=== PATIENT | male | born 1975 | race Caucasian/White ===

== ENCOUNTER 2016-12-12 20:46 | Emergency (ER) | payer SELFPAY ==
[2016-12-12 21:03] VITALS: BP 133/71
--- NOTE | 2016-12-12 21:05 | EDM.PDOCBH ---
ED HPI GENERAL MEDICAL PROBLEM - General Chief Complaint: Drug or Alcohol Abuse Stated Complaint: DETOX Time Seen by Provider: 12/12/16 21:04 Source of Information: Reports: Patient History Limitations: Reports: No Limitations - History of Present Illness INITIAL COMMENTS - FREE TEXT/NARRATIVE: HISTORY AND PHYSICAL: History of present illness: [41-year-old male with a history of brain injury and methamphetamine abuse now presents to the emergency department hoping that we can arrange drug debilitation therapy for him. Patient last used meth more than 2 weeks ago. He has not overdosed or injured himself in any way. He denies depression. No SI or HI. She states he is currently feeling well but he was under the impression that he needed detox before rehabilitation and he did not know that we don't offer either. No other complaints Review of systems: As per history of present illness and below otherwise all systems reviewed and negative. Past medical history: As per history of present illness and as reviewed below otherwise noncontributory. Surgical history: As per history of present illness and as reviewed below otherwise noncontributory. Social history: No reported history of drug or alcohol abuse. Family history: As per history of present illness and as reviewed below otherwise noncontributory. Physical exam: Well-appearing male with a running 4 had deformity. Alert communicative cooperative and appropriate with a nonfocal neurologic exam HEENT: Atraumatic, normocephalic, pupils reactive, negative for conjunctival pallor or scleral icterus, mucous membranes moist, throat clear, neck supple, nontender, trachea midline. Lungs: Clear to auscultation, breath sounds equal bilaterally, chest nontender. Heart: S1S2, regular, negative for clicks, rubs, or JVD. Abdomen: Soft, nondistended, nontender. Negative for masses or hepatosplenomegaly. Negative for costovertebral tenderness. Pelvis: Stable nontender. Genitourinary: Deferred. Rectal: Deferred. Extremities: Atraumatic, negative for cords or calf pain. Neurovascular unremarkable. Neuro: Awake, alert, oriented. Cranial nerves II through XII unremarkable. Cerebellum unremarkable. Motor and sensory unremarkable throughout. Exam nonfocal. Diagnostics: [] Therapeutics: [] Impression: [Methamphetamine abuse] Plan: [Patient with history of methamphetamine addiction however he is asymptomatic and stable in the emergency department. Vital signs unremarkable. Patient does not present with any psychiatric emergency Center clean no SI and he has not used drugs recently or overdosed in any way. Encouraged patient to pursue treatment for his addictions. He has supportive family with him at the bedside. Patient will be given a list of resources. No further workup or treatment indicated. Patient family agree with outpatient follow-up and strict return precautions given Definitive disposition and diagnosis as appropriate pending reevaluation and review of above. - Related Data Allergies Allergy/AdvReac Type Severity Reaction Status Date / Time NSAIDS (Non-Steroidal Allergy Other Verified 12/12/16 21:03 Anti-Inflamma Home Meds: Home Meds . [No Known Home Meds] 12/12/16 [History] ED ROS GENERAL - Review of Systems Review Of Systems: See Below (History of present illness) ED EXAM, BEHAVIORAL HEALTH - Physical Exam Exam: See Below (History of present illness) COURSE, BEHAVIORAL HEALTH COMP - Course Vital Signs: Last Vital Signs Temp 36.4 C 12/12/16 20:59 Pulse 87 12/12/16 20:59 Resp 19 12/12/16 20:59 BP 133/71 12/12/16 20:59 Pulse Ox 99 12/12/16 20:59 Departure - Departure Time of Disposition: 21:43 Disposition: Home, Self-Care 01 Condition: Good Clinical Impression: Methamphetamine abuse - Discharge Information Instructions: Finding Treatment for Addiction Referrals: PCP,None [Primary Care Provider] - Forms: ED Department Discharge Additional Instructions: We applaud you for seeking rehabilitation services for your drug addiction. Our facility does not offer drug rehabilitation but we've given you our list of any resources that are available for you and your family to seek as an outpatient. Follow-up for rehabilitation been always remember that there is an alternative to drug abuse and treatment and support for your addiction. Follow-up with your DrSiva in one to 2 days and return immediately at anytime if you feel that you may be a danger to yourself.
== END 2016-12-12 21:52 | disposition home or self-care (01) ==
LOC: MW.ED 20:46
DX: F15.10 Other stimulant abuse, uncomplicated (principal); Z88.8 Allergy status to other drugs, medicaments and biological substances
CPT/HCPCS: 99282; 99284

== ENCOUNTER 2016-12-14 20:09 | Emergency (ER) | payer SELFPAY | END 2016-12-14 20:11 | disposition left against medical advice (07) | LOC: MW.ED 20:09 | DX: Z53.21 Procedure and treatment not carried out due to patient leaving prior to being seen by health care provider (principal) ==

== ENCOUNTER 2017-03-18 15:11 | Emergency (ER) | payer SELFPAY ==
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
[2017-03-18 17:07] LABS: CHLORIDE,CL 107 mmol/L (98-110); SODIUM,NA 141 mmol/L (136-146)
[2017-03-18 17:27] VITALS: BP 98/65
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
--- NOTE | 2017-03-20 13:11 | CR ---
EXAM DATE: 03/18/17 PATIENT'S AGE: 41 Patient: BALDO SMART Facility: [place], [place] Site . Site : 1975 Study: XRay Abdomen [id number]/[id number] 4:09:42 PM Ordering Physician: Doctor Resendiz Final Report: INDICATION: Abdomen pain x 1 week TECHNIQUE: Abdomen 1 view. COMPARISON: None. FINDINGS: Bowel: Bowel pattern is normal. No significant stool in the colon. Soft tissues: No sign of free air. No sign of soft tissue mass. No suspicious calcifications. Bones: Unremarkable for age. IMPRESSION: Unremarkable abdomen. Dictated by: Aly Ragland MD @ 03/18/2017 16:29:18 (Electronic Signature) Report Signed by Proxy. ANGELO
== END 2017-03-18 17:23 | disposition home or self-care (01) ==
LOC: MW.ED 15:11
DX: J32.9 Chronic sinusitis, unspecified (principal); R10.9 Unspecified abdominal pain; F17.210 Nicotine dependence, cigarettes, uncomplicated; Z88.8 Allergy status to other drugs, medicaments and biological substances
CPT/HCPCS: 36415; 70450; 70450-26; 74000; 74000-26; 80053; 82150; 83690; 85025; 99283; 99284-25

== ENCOUNTER 2017-08-15 22:39 | Emergency (ER) | payer SELFPAY ==
[2017-08-15] MEDS ORDERED: Sodium Chloride 0.9% 1,000 ML IV ONE (23:04)
--- NOTE | 2017-08-15 23:04 | EDM.PDOC ---
ED HPI GENERAL MEDICAL PROBLEM - General Chief Complaint: Flank Pain Stated Complaint: INTOXICATED Time Seen by Provider: 08/15/17 22:55 - History of Present Illness INITIAL COMMENTS - FREE TEXT/NARRATIVE: HISTORY AND PHYSICAL: History of present illness: Patient's 42-year-old white male brought here with his brother for medical screening exam patient acknowledges polysubstance abuse has been seen for the same the past. He complains of flank discomfort. No reported fever chills vomiting trauma or other concern Review of systems: As per history of present illness and below otherwise all systems reviewed and negative. Past medical history: As per history of present illness and as reviewed below otherwise noncontributory. Surgical history: As per history of present illness and as reviewed below otherwise noncontributory. Social history: No reported history of drug or alcohol abuse. Family history: As per history of present illness and as reviewed below otherwise noncontributory. Physical exam: HEENT: Atraumatic, normocephalic, pupils reactive, negative for conjunctival pallor or scleral icterus, mucous membranes moist, throat clear, neck supple, nontender, trachea midline. Lungs: Clear to auscultation, breath sounds equal bilaterally, chest nontender. Heart: S1S2, regular, negative for clicks, rubs, or JVD. Abdomen: Soft, nondistended, nontender. Negative for masses or hepatosplenomegaly. Negative for costovertebral tenderness. Pelvis: Stable nontender. Genitourinary: Deferred. Rectal: Deferred. Extremities: Atraumatic, negative for cords or calf pain. Neurovascular unremarkable. Neuro: Awake, alert, follows commands and moves all extremities limited but grossly nonfocal Diagnostics: CBC CMP UA Therapeutics: To be determined Impression: #1 medical screening exam #2 history of polysubstance abuse Definitive disposition and diagnosis as appropriate pending reevaluation and review of above. Left flank Pain Score (Numeric/FACES): 3 - Related Data Allergies Allergy/AdvReac Type Severity Reaction Status Date / Time NSAIDS (Non-Steroidal Allergy Other Verified 03/18/17 15:24 Anti-Inflamma Home Meds: Home Meds . [No Known Home Meds] 12/12/16 [History] Past Medical History Other Genitourinary History: donated one kidney to ex- Musculoskeletal History: Reports: None Other Neuro History: traumatic brain injury - Infectious Disease History Infectious Disease History: Reports: Chicken Pox - Past Surgical History Male Surgical History: Reports: Nephrectomy Other Neurological Surgeries/Procedures: skull reconstruction Other Musculoskeletal Surgeries/Procedures:: bilateral knee surgery Social & Family History - Family History Family Medical History: Noncontributory - Tobacco Use Smoking Status *Q: Current Every Day Smoker Years of Tobacco use: 26 Packs/Tins Daily: 1 - Caffeine Use Caffeine Use: Reports: Coffee, Soda, Tea Caffeine Use Comment: 2cups coffee/day; 3 pops/day - Alcohol Use Days Per Week of Alcohol Use: 1 Number of Drinks Per Day: 2 Total Drinks Per Week: 2 - Recreational Drug Use Recreational Drug Use: No Recreational Drug Type: Reports: Marijuana/Hashish, Methamphetamine Recreational Drug Last Use: 2 weeks ago ED ROS GENERAL - Review of Systems Review Of Systems: ROS reveals no pertinent complaints other than HPI. ED EXAM, GENERAL - Physical Exam Exam: See Below (See dictation) Course - Vital Signs Last Recorded V/S: Last Vital Signs Temp 37.1 C 08/15/17 22:39 Pulse 130 H 08/15/17 22:39 Resp 18 08/15/17 22:39 BP 124/83 08/15/17 22:39 Pulse Ox 98 08/15/17 22:39 - Orders/Labs/Meds Orders: Active Orders 24 hr Category Date Time Status CBC WITH AUTO DIFF [HEME] Stat Lab 08/15/17 22:55 Ordered COMPREHENSIVE METABOLIC PN,CMP [CHEM] Stat Lab 08/15/17 22:55 Ordered CULTURE URINE [RM] Stat Lab 08/15/17 22:56 Received UA W/MICROSCOPIC [URIN] Stat Lab 08/15/17 22:56 Ordered Departure - Departure Time of Disposition: 23:03 Disposition: Home, Self-Care 01 Condition: Good Clinical Impression: Encounter for medical screening examination, Polysubstance abuse - Discharge Information Referrals: PCP,None [Primary Care Provider] - Additional Instructions: The following information is given to patients seen in the emergency department who are being discharged to home. This information is to outline your options for follow-up care. We provide all patients seen in our emergency department with a follow-up referral. The need for follow-up, as well as the timing and circumstances, are variable depending upon the specifics of your emergency department visit. If you don't have a primary care physician on staff, we will provide you with a referral. We always advise you to contact your personal physician following an emergency department visit to inform them of the circumstance of the visit and for follow-up with them and/or the need for any referrals to a consulting specialist. The emergency department will also refer you to a specialist when appropriate. This referral assures that you have the opportunity for followup care with a specialist. All of these measure are taken in an effort to provide you with optimal care, which includes your followup. Under all circumstances we always encourage you to contact your private physician who remains a resource for coordinating your care. When calling for followup care, please make the office aware that this follow-up is from your recent emergency room visit. If for any reason you are refused follow-up, please contact the [facility] emergency department at and asked to speak to the emergency department charge nurse. Follow-up primary medical Dr. Liriano human services referral return as needed as discussed - My Orders Last 24 Hours: My Active Orders 08/15/17 22:55 CBC WITH AUTO DIFF [HEME] Stat COMPREHENSIVE METABOLIC PN,CMP [CHEM] Stat 08/15/17 22:56 CULTURE URINE [RM] Stat UA W/MICROSCOPIC [URIN] Stat - Assessment/Plan Last 24 Hours: My Active Orders 08/15/17 22:55 CBC WITH AUTO DIFF [HEME] Stat COMPREHENSIVE METABOLIC PN,CMP [CHEM] Stat 08/15/17 22:56 CULTURE URINE [RM] Stat UA W/MICROSCOPIC [URIN] Stat
[2017-08-15] MEDS ORDERED: Sodium Chloride 0.9% 10 ML Syringe FLUSH PRN (23:23)
[2017-08-15] MEDS ORDERED: Sodium Chloride 0.9% 2.5 ML Syringe FLUSH PRN (23:23)
[2017-08-16 00:36] VITALS: BP 117/76
== END 2017-08-16 00:35 | disposition home or self-care (01) ==
LOC: MW.ED 22:39
DX: F19.10 Other psychoactive substance abuse, uncomplicated (principal); F17.210 Nicotine dependence, cigarettes, uncomplicated; Z88.8 Allergy status to other drugs, medicaments and biological substances
CPT/HCPCS: 36415; 80053; 81001; 85025; 87086; 96360; 99284; J7040; 99282